=== PATIENT | male | born 1955 | race Caucasian/White ===

== ENCOUNTER 2019-11-22 00:16 | Day surgery (SDC) | payer BC, SELFPAY ==
[2019-11-20 10:17] VITALS: BMI 29.2
[2019-11-22 06:26] VITALS: BP 114/68; PULSE 73; RESP 16; TEMP 36.1; O2SAT 97; BMI 29.5
[2019-11-22] MEDS: LACTATED RINGERS 1,000 ML 150 ML IV CONT (06:33)
--- NOTE | 2019-11-22 07:07 | WPDANESEPPF ---
Anes - Initial Pre Proc Eval Procedure: Operation Date: 11/22/19 07:30 Proposed Procedures p Esophagogastroduodenoscopy - Efren Marcelo MD Date/Time: 11/22/19 07:07 Surgeon: Efren Marcelo MD Pre Op Diagnosis: Esophageal Stricture Patient Data Age: 64 Gender: M Height: 5 ft 11 in Weight: 96.2 kg Last Vital Signs Temp 97.0 F L 11/22/19 06:26 Pulse 73 11/22/19 06:26 Resp 16 11/22/19 06:26 BP 144/68 H 11/22/19 06:26 Pulse Ox 97 11/22/19 06:26 Allergies Allergy/AdvReac Type Severity Reaction Status Date / Time No Known Allergies Allergy Verified 11/22/19 06:24 Home Medications Medication Instructions Recorded Confirmed Type aspirin 243 mg PO DAILY 11/20/19 11/22/19 History coQ10 (ubiquinol) 200 mg PO DAILY 11/20/19 11/22/19 History fenofibrate 160 mg PO DAILY 11/20/19 11/22/19 History ginkgo biloba 60 mg PO BID 11/20/19 11/22/19 History hydrochlorothiazide 12.5 mg PO DAILY 11/20/19 11/22/19 History levothyroxine 75 mcg PO DAILY 11/20/19 11/22/19 History lisinopril 20 mg PO DAILY 11/20/19 11/22/19 History omega 9-wvf-czr-fish oil [Fish Oil] 1 cap PO DAILY 11/20/19 11/22/19 History pantoprazole 40 mg PO DAILY 11/20/19 11/22/19 History testosterone cypionate 200 mg IM [id number] 11/20/19 11/22/19 History valacyclovir 500 mg PO DAILY 11/20/19 11/22/19 History Patient hx anesthesia problems: none Family hx anesthesia problems: none PMFSH Past Medical History Medical History (Updated 11/22/19 @ 07:08 by Meek Burk MD) GERD (gastroesophageal reflux disease) Hyperlipidemia Hypertension Hypothyroid Anes - Eval Final PreProcedure Day of Procedure 11/22/19 07:07 Patient weight: overweight Heart: regular rate and rhythm Lungs: clear to auscultation Airway: Mallampati scale class II Neurological: alert and oriented Last oral intake: >/= 8 hours ASA classification: III Emergent: no Anesthetic plan: proceed Anesthesia type and monitoring: general GIVS and standard monitoring Informed Consent: The patient's anesthetic plan and its attendant risks and benefits were discussed with the patient/family/POA. Questions were solicited and answers provided to the satisfaction of the patient/family/POA.
--- NOTE | 2019-11-22 07:15 | PM.HPGS ---
History of Present Illness History of Present Illness Consent: Risks, benefits, and alternatives have been discussed and questions answered. Patient agrees to proceed with procedure. Chief complaint: Esophageal Stricture Narrative: Pratik Phillips is a 64 year old male Who recently was found to have severe esophagitis and esophageal stricture. His swallowing has improved on medication. [facility] Past Medical History Medical History GERD (gastroesophageal reflux disease) Hyperlipidemia Hypertension Hypothyroid Meds Home Medications and Allergies Home Medications Medication Instructions Recorded Confirmed Type aspirin 243 mg PO DAILY 11/20/19 11/22/19 History coQ10 (ubiquinol) 200 mg PO DAILY 11/20/19 11/22/19 History fenofibrate 160 mg PO DAILY 11/20/19 11/22/19 History ginkgo biloba 60 mg PO BID 11/20/19 11/22/19 History hydrochlorothiazide 12.5 mg PO DAILY 11/20/19 11/22/19 History levothyroxine 75 mcg PO DAILY 11/20/19 11/22/19 History lisinopril 20 mg PO DAILY 11/20/19 11/22/19 History omega 7-yir-kil-fish oil [Fish Oil] 1 cap PO DAILY 11/20/19 11/22/19 History pantoprazole 40 mg PO DAILY 11/20/19 11/22/19 History testosterone cypionate 200 mg IM [id number] 11/20/19 11/22/19 History valacyclovir 500 mg PO DAILY 11/20/19 11/22/19 History Allergies Allergy/AdvReac Type Severity Reaction Status Date / Time No Known Allergies Allergy Verified 11/22/19 06:24 Vital Signs Vital Signs - 24 hr 11/22/19 06:26 Temperature 36.1 C L Pulse Rate 73 Respiratory Rate 16 Blood Pressure 144/68 H Pulse Oximetry 97 Exam Const: General: alert Orientation/consciousness: patient oriented x3 Resp: Auscultation: clear to auscultation bilaterally Cardio: Rhythm: regular rhythm GI: GI Palp: Yes Soft to palpation and No Tenderness to palpation present (GI) Neuro: General: patient oriented x3 Assessment and Plan Assessment and plan (1) Dysphagia: Code(s): R13.10 - Dysphagia, unspecified Status: Acute Assessment and Plan: EGD with possible biopsy or dilatation or cautery.
[2019-11-22 07:41] VITALS: BP 92/55; PULSE 81; RESP 18; O2SAT 94
[2019-11-22 07:51] VITALS: BP 93/62; PULSE 74; RESP 18; O2SAT 98
[2019-11-22 08:01] VITALS: BP 120/82; PULSE 68; RESP 20; O2SAT 98
== END 2019-11-22 08:16 | disposition home or self-care (01) ==
PROVIDERS: PCP Internal Medicine; Visit Provider Internal Medicine Gastroenterology
PROC: 0DJ08ZZ Inspection of Upper Intestinal Tract, Via Natural or Artificial Opening Endoscopic (ICD-10-PCS; CPT 43235; principal; 2019-11-22 07:30)
DX: K22.2 Esophageal obstruction (principal); K22.70 Barrett's esophagus without dysplasia; K21.9 Gastro-esophageal reflux disease without esophagitis; I10 Essential (primary) hypertension; E78.5 Hyperlipidemia, unspecified; E03.9 Hypothyroidism, unspecified; Z79.82 Long term (current) use of aspirin
CPT/HCPCS: 43249; 88305; C1726; J2704; J7120

== ENCOUNTER 2023-09-07 00:58 | Day surgery (SDC) | payer MEDICARE, BC, SELFPAY ==
[2023-08-22 10:44] VITALS: BMI 28.0
--- NOTE | 2023-09-05 09:56 | SUR.PREOP ---
Patient called regarding upcoming procedure. Reviewed preop instructions, appointment times, and procedure prep.
--- NOTE | 2023-09-06 16:26 | PM.HPGS ---
History of Present Illness History of Present Illness Consent: Risks, benefits, and alternatives have been discussed and questions answered. Patient agrees to proceed with procedure. Chief complaint: neoplasm screening Narrative: Pratik Phillips is a 68 year old male referred for colon cancer screening. Review of Systems Review of Systems: All systems reviewed & are unremarkable except as noted in HPI and below PMFSH Past Medical History Medical History GERD (gastroesophageal reflux disease) Hyperlipidemia Hypertension Hypothyroid Social History Social History Smoking status: Former smoker Alcohol intake: never Substance use: current Substance use type: does not use Living arrangements: with family Spiritual care concerns: No Meds Home Medications and Allergies Home Medications Medication Instructions Recorded Confirmed Type aspirin 81 mg tablet,delayed 81 mg PO DAILY 11/20/19 09/07/23 History release fenofibrate 160 mg tablet 160 mg PO DAILY 11/20/19 09/07/23 History ginkgo biloba 60 mg capsule 60 mg PO BID 11/20/19 09/07/23 History levothyroxine 75 mcg tablet 75 mcg PO DAILY 11/20/19 09/07/23 History lisinopril 20 mg tablet 20 mg PO DAILY 11/20/19 09/07/23 History omega 0-uds-zhl-fish oil 1,000 mg 1 cap PO DAILY 11/20/19 09/07/23 History (120 mg-180 mg) capsule (Fish Oil) testosterone cypionate 200 mg/mL 100 mg IM [id number] 11/20/19 09/07/23 History intramuscular oil valacyclovir 500 mg tablet 500 mg PO DAILY 11/20/19 09/07/23 History amlodipine 5 mg tablet 5 mg PO DAILY 08/22/23 09/07/23 History famotidine 20 mg tablet 20 mg PO BID 08/22/23 09/07/23 History tamsulosin 0.4 mg capsule 0.4 mg PO HS 08/22/23 09/07/23 History vitamin B complex and vitamin C 1 cap PO DAILY 08/22/23 09/07/23 History no.20-folic acid 1 mg capsule ([place] Caps) Allergies Allergy/AdvReac Type Severity Reaction Status Date / Time No Known Allergies Allergy Verified 09/07/23 07:12 Exam Resp: Auscultation: clear to auscultation bilaterally Cardio: Rate: regular rate Rhythm: regular rhythm GI: GI Palp: Yes Soft to palpation and No Tenderness to palpation present (GI) Assessment and Plan Assessment and plan (1) Colon cancer screening: Code(s): Z12.11 - Encounter for screening for malignant neoplasm of colon Status: Acute Assessment and Plan: Colonoscopy with possible biopsy or polypectomy or cautery or injection of substances.
[2023-09-07 07:16] VITALS: BP 129/94; PULSE 76; RESP 18; TEMP 36.6; O2SAT 97
[2023-09-07] MEDS: LACTATED RINGERS 1,000 ML 150 ML IV CONT (07:47)
--- NOTE | 2023-09-07 08:17 | WPDANESEPPF ---
Anes - Initial Pre Proc Eval Procedure: Operation Date: 09/07/23 08:30 Proposed Procedures p Screening Colonoscopy - Efren Marcelo MD Date/Time: 09/07/23 08:17 Surgeon: Efren Marcelo MD Pre Op Diagnosis: neoplasm screening Patient Data Age: 68 Gender: M Height: 1.78 m Weight: 88.5 kg Last Vital Signs Temp 97.8 F 09/07/23 07:16 Pulse 76 09/07/23 07:16 Resp 18 09/07/23 07:16 BP 129/94 H 09/07/23 07:16 Pulse Ox 97 09/07/23 07:16 O2 Del Method Room Air 09/07/23 07:16 Allergies Allergy/AdvReac Type Severity Reaction Status Date / Time No Known Allergies Allergy Verified 09/07/23 07:12 Home Medications Medication Instructions Recorded Confirmed Type aspirin 81 mg tablet,delayed 81 mg PO DAILY 11/20/19 09/07/23 History release fenofibrate 160 mg tablet 160 mg PO DAILY 11/20/19 09/07/23 History ginkgo biloba 60 mg capsule 60 mg PO BID 11/20/19 09/07/23 History levothyroxine 75 mcg tablet 75 mcg PO DAILY 11/20/19 09/07/23 History lisinopril 20 mg tablet 20 mg PO DAILY 11/20/19 09/07/23 History omega 5-avg-mka-fish oil 1,000 mg 1 cap PO DAILY 11/20/19 09/07/23 History (120 mg-180 mg) capsule (Fish Oil) testosterone cypionate 200 mg/mL 100 mg IM [id number] 11/20/19 09/07/23 History intramuscular oil valacyclovir 500 mg tablet 500 mg PO DAILY 11/20/19 09/07/23 History amlodipine 5 mg tablet 5 mg PO DAILY 08/22/23 09/07/23 History famotidine 20 mg tablet 20 mg PO BID 08/22/23 09/07/23 History tamsulosin 0.4 mg capsule 0.4 mg PO HS 08/22/23 09/07/23 History vitamin B complex and vitamin C 1 cap PO DAILY 08/22/23 09/07/23 History no.20-folic acid 1 mg capsule ([place] Caps) Patient hx anesthesia problems: none Family hx anesthesia problems: none Results Review: All pre-operative results and documents have been reviewed as part of the pre-operative evaluation. PENDING SALE TO [facility] Past Medical History Medical History GERD (gastroesophageal reflux disease) Hyperlipidemia Hypertension Hypothyroid Social History Social History Smoking status: Former smoker Alcohol intake: never Substance use: current Substance use type: does not use Living arrangements: with family Spiritual care concerns: No Anes - Eval Final PreProcedure Day of Procedure 09/07/23 08:17 Patient weight: normal Heart: regular rate and rhythm Lungs: clear to auscultation Airway: Mallampati scale class II Neurological: alert and oriented Last oral intake: >/= 8 hours ASA classification: III Emergent: no Anesthetic plan: proceed Anesthesia type and monitoring: general GIVS and standard monitoring Results Review: All pre-operative results and documents have been reviewed as part of the pre-operative evaluation. Informed Consent: The patient's anesthetic plan and its attendant risks and benefits were discussed with the patient/family/POA. Questions were solicited and answers provided to the satisfaction of the patient/family/POA.
[2023-09-07] MEDS: SIMETHICONE ORAL SUSPENSION 20 MG/0.3 ML 30 ML BOTTLE 0.6 ML IRRIGATION (08:40)
[2023-09-07 08:47] VITALS: BP 111/52; PULSE 58; RESP 20; O2SAT 100
[2023-09-07 08:57] VITALS: BP 108/65; PULSE 84; RESP 18; O2SAT 99
[2023-09-07 09:07] VITALS: BP 117/82; PULSE 77; RESP 18; O2SAT 99
== END 2023-09-07 09:22 | disposition home or self-care (01) ==
PROVIDERS: PCP Internal Medicine; Visit Provider Internal Medicine Gastroenterology
PROC: 0DJD8ZZ Inspection of Lower Intestinal Tract, Via Natural or Artificial Opening Endoscopic (ICD-10-PCS; CPT 45378; principal; 2023-09-07 08:30)
DX: Z12.11 Encounter for screening for malignant neoplasm of colon (principal); K64.8 Other hemorrhoids; K57.30 Diverticulosis of large intestine without perforation or abscess without bleeding; K21.9 Gastro-esophageal reflux disease without esophagitis; E78.5 Hyperlipidemia, unspecified; I10 Essential (primary) hypertension; E03.9 Hypothyroidism, unspecified; Z79.82 Long term (current) use of aspirin; Z87.891 Personal history of nicotine dependence
CPT/HCPCS: G0121; J2371; J2704; J7120

== ENCOUNTER 2023-10-13 01:24 | Day surgery (SDC) | payer MEDICARE, BC, SELFPAY ==
[2023-09-15 13:55] VITALS: BMI 28.3
--- NOTE | 2023-09-15 13:57 | PC.NURSE ---
Pt states he had a colonoscopy here last week. States no changes in health history or medications since then. Aware of date and time of EGD, 10/13/23 at 0600/0730. Verbalizes understanding. No questions.
--- NOTE | 2023-10-11 09:49 | SUR.PREOP ---
Patient called regarding upcoming procedure. Left voicemail with procedure date and time and contact for questions.
--- NOTE | 2023-10-11 20:48 | PM.HPGS ---
History of Present Illness History of Present Illness Consent: Risks, benefits, and alternatives have been discussed and questions answered. Patient agrees to proceed with procedure. Chief complaint: dysphagia unspecified Narrative: Pratik Phillips is a 68 year old male with Thomas's esophagus dx'd 4 yrs ago. He also as had a stricture Review of Systems Review of Systems: All systems reviewed & are unremarkable except as noted in HPI and below PMFSH Past Medical History Medical History GERD (gastroesophageal reflux disease) Hyperlipidemia Hypertension Hypothyroid Social History Social History Smoking status: Former smoker Alcohol intake: never Substance use: current Substance use type: does not use Living arrangements: with family Spiritual care concerns: No Meds Home Medications and Allergies Home Medications Medication Instructions Recorded Confirmed Type aspirin 81 mg tablet,delayed 81 mg PO DAILY 11/20/19 09/15/23 History release fenofibrate 160 mg tablet 160 mg PO DAILY 11/20/19 09/15/23 History ginkgo biloba 60 mg capsule 60 mg PO BID 11/20/19 09/15/23 History levothyroxine 75 mcg tablet 75 mcg PO DAILY 11/20/19 09/15/23 History lisinopril 20 mg tablet 20 mg PO DAILY 11/20/19 09/15/23 History omega 6-nhr-urm-fish oil 1,000 mg 1 cap PO DAILY 11/20/19 09/15/23 History (120 mg-180 mg) capsule (Fish Oil) testosterone cypionate 200 mg/mL 100 mg IM [id number] 11/20/19 09/15/23 History intramuscular oil valacyclovir 500 mg tablet 500 mg PO DAILY 11/20/19 09/15/23 History amlodipine 5 mg tablet 5 mg PO DAILY 08/22/23 09/15/23 History famotidine 20 mg tablet 20 mg PO BID 08/22/23 09/15/23 History tamsulosin 0.4 mg capsule 0.4 mg PO HS 08/22/23 09/15/23 History vitamin B complex and vitamin C 1 cap PO DAILY 08/22/23 09/15/23 History no.20-folic acid 1 mg capsule ([place] Caps) Allergies Allergy/AdvReac Type Severity Reaction Status Date / Time No Known Allergies Allergy Verified 10/13/23 06:19 Exam Const: General: alert Orientation/consciousness: patient oriented x3 Resp: Auscultation: clear to auscultation bilaterally Cardio: Rhythm: regular rhythm GI: GI Palp: Yes Soft to palpation and No Tenderness to palpation present (GI) Neuro: General: patient oriented x3 Assessment and Plan Assessment and plan (1) Dysphagia: Code(s): R13.10 - Dysphagia, unspecified Status: Acute Assessment and Plan: EGD with possible biopsy or dilatation or cautery.
[2023-10-13 06:20] VITALS: BP 134/80; PULSE 86; RESP 18; TEMP 36.3; O2SAT 97
[2023-10-13] MEDS: LACTATED RINGERS 1,000 ML 150 ML IV CONT (06:28)
--- NOTE | 2023-10-13 07:25 | P.PNAN_ITS ---
Anes - Initial Pre Proc Eval Procedure: Operation Date: 10/13/23 07:30 Proposed Procedures p Esophagogastroduodenoscopy - Efren Marcelo MD Date/Time: 10/13/23 07:25 Surgeon: Efren Marcelo MD Pre Op Diagnosis: dysphagia unspecified Patient Data Age: 68 Gender: M Height: 1.78 m Weight: 89.8 kg Last Vital Signs Temp 97.3 F L 10/13/23 06:20 Pulse 86 10/13/23 06:20 Resp 18 10/13/23 06:20 BP 134/80 10/13/23 06:20 Pulse Ox 97 10/13/23 06:20 O2 Del Method Room Air 10/13/23 06:20 Allergies Allergy/AdvReac Type Severity Reaction Status Date / Time No Known Allergies Allergy Verified 10/13/23 06:19 Home Medications Medication Instructions Recorded Confirmed Type aspirin 81 mg tablet,delayed 81 mg PO DAILY 11/20/19 09/15/23 History release fenofibrate 160 mg tablet 160 mg PO DAILY 11/20/19 09/15/23 History ginkgo biloba 60 mg capsule 60 mg PO BID 11/20/19 09/15/23 History levothyroxine 75 mcg tablet 75 mcg PO DAILY 11/20/19 09/15/23 History lisinopril 20 mg tablet 20 mg PO DAILY 11/20/19 09/15/23 History omega 3-das-kds-fish oil 1,000 mg 1 cap PO DAILY 11/20/19 09/15/23 History (120 mg-180 mg) capsule (Fish Oil) testosterone cypionate 200 mg/mL 100 mg IM [id number] 11/20/19 09/15/23 History intramuscular oil valacyclovir 500 mg tablet 500 mg PO DAILY 11/20/19 09/15/23 History amlodipine 5 mg tablet 5 mg PO DAILY 08/22/23 09/15/23 History famotidine 20 mg tablet 20 mg PO BID 08/22/23 09/15/23 History tamsulosin 0.4 mg capsule 0.4 mg PO HS 08/22/23 09/15/23 History vitamin B complex and vitamin C 1 cap PO DAILY 08/22/23 09/15/23 History no.20-folic acid 1 mg capsule ([place] Caps) Patient hx anesthesia problems: none Family hx anesthesia problems: none Results Review: All pre-operative results and documents have been reviewed as part of the pre- operative evaluation. [facility] Past Medical History Medical History GERD (gastroesophageal reflux disease) Hyperlipidemia Hypertension Hypothyroid Social History Social History Smoking status: Former smoker Alcohol intake: never Substance use: current Substance use type: does not use Living arrangements: with family Spiritual care concerns: No Anes - Eval Final PreProcedure Day of Procedure 10/13/23 07:25 Patient weight: normal Heart: regular rate and rhythm Lungs: clear to auscultation Airway: Mallampati scale class II Neurological: alert and oriented Last oral intake: >/= 8 hours ASA classification: III Emergent: no Anesthetic plan: proceed Anesthesia type and monitoring: general GIVS and standard monitoring Results Review: All pre-operative results and documents have been reviewed as part of the pre- operative evaluation. Informed Consent: The patient's anesthetic plan and its attendant risks and benefits were discussed with the patient/family/POA. Questions were solicited and answers provided to the satisfaction of the patient/family/POA.
[2023-10-13 07:48] VITALS: BP 91/68; PULSE 82; RESP 16; O2SAT 92
[2023-10-13 07:58] VITALS: BP 82/65; PULSE 84; RESP 23; O2SAT 91
[2023-10-13 08:08] VITALS: BP 121/69; PULSE 69; RESP 22; O2SAT 96
== END 2023-10-13 08:19 | disposition home or self-care (01) ==
PROVIDERS: PCP Internal Medicine; Visit Provider Internal Medicine Gastroenterology
PROC: 0DJ08ZZ Inspection of Upper Intestinal Tract, Via Natural or Artificial Opening Endoscopic (ICD-10-PCS; CPT 43235; principal; 2023-10-13 07:30)
DX: K22.70 Barrett's esophagus without dysplasia (principal); K22.2 Esophageal obstruction; K21.00 Gastro-esophageal reflux disease with esophagitis, without bleeding; Z79.82 Long term (current) use of aspirin; I10 Essential (primary) hypertension; E78.5 Hyperlipidemia, unspecified; E03.9 Hypothyroidism, unspecified; Z87.891 Personal history of nicotine dependence
CPT/HCPCS: 43249; 88305; C1726; J2704; J7120